=== PATIENT | male | born 2000 | race Caucasian/White ===

== ENCOUNTER 2024-09-21 10:46 | Emergency (ER) | payer BC ==
[~2024-09-21] VITALS: Ht 180.3 cm; Wt 81.8 kg
[2024-09-21 12:20] LABS: KETONE, URINE AUTO RFX NEGATIVE (NEGATIVE); LEUKOCYTE ESTERASE UR AUTO RFX NEGATIVE (NEGATIVE); NITRITE, URINE AUTO RFX NEGATIVE (NEGATIVE); RBC, URINE AUTO RFX 1 /HPF (0-3); SQUAM EPITHELIAL CELL UR AURFX 0 /HPF (0-6); WBC, URINE AUTO RFX 5 /HPF (0-3)
[2024-09-21 12:43] VITALS: BP 132/66; TEMP 98; O2SAT 100
[2024-09-21 13:18] LABS: Trichomonas vaginalis (AMP) NOT DETECTED (NEGATIVE)
[2024-09-21 13:41] LABS: GC DNA AMPLIFICATION NEGATIVE (NEGATIVE)
[2024-09-21] MEDS ORDERED: DOXY-441 PO (14:01)
== END 2024-09-21 14:07 | disposition home or self-care (01) ==
LOC: M ED 10:46
DX: N45.1 Epididymitis (principal); A74.9 Chlamydial infection, unspecified; Z79.2 Long term (current) use of antibiotics